=== PATIENT | male | born 1995 | race African-American/Black ===

== ENCOUNTER 2021-03-20 17:58 | Emergency (ER) | payer OTHER ==
[~2021-03-20] VITALS: Ht 182.9 cm; Wt 81.8 kg
[2021-03-20 18:08] VITALS: BP 133/69
== END 2021-03-20 20:43 | disposition left against medical advice (07) ==
LOC: M ED 17:58
DX: Z53.21 Procedure and treatment not carried out due to patient leaving prior to being seen by health care provider (principal)

== ENCOUNTER 2021-05-21 17:45 | Emergency (ER) | payer OTHER ==
[~2021-05-21] VITALS: Ht 182.9 cm; Wt 83.6 kg
[2021-05-21 19:37] VITALS: BP 133/78
== END 2021-05-21 19:38 | disposition home or self-care (01) ==
LOC: M ED 17:45
DX: T20.10XA Burn of first degree of head, face, and neck, unspecified site, initial encounter (principal); X08.8XXA Exposure to other specified smoke, fire and flames, initial encounter; Y92.89 Other specified places as the place of occurrence of the external cause; L30.9 Dermatitis, unspecified

== ENCOUNTER 2022-02-15 19:09 | Emergency (ER) | payer OTHER ==
[~2022-02-15] VITALS: Ht 182.9 cm; Wt 80.0 kg
[2022-02-16 01:24] VITALS: BP 129/76
== END 2022-02-16 01:26 | disposition home or self-care (01) ==
LOC: M ED 19:09
DX: U07.1 COVID-19 (principal)